=== PATIENT | female | born 1935 | race Caucasian/White ===

== ENCOUNTER 2022-05-01 13:47 | Emergency (ER) | payer MEDICARE, SELFPAY ==
--- NOTE | ~2022-05-01 | XR_ITS ---
EXAMINATION: XR FOOT, RIGHT CLINICAL INFORMATION: Right foot pain and swelling. COMPARISON: None TECHNIQUE: AP, lateral, and oblique views of the right foot. FINDINGS: Healed 5th metatarsal fracture. No acute fracture or dislocation. First metatarsophalangeal hallux valgus angulation with lateral subluxation of hallux sesamoids and mild osteoarthritis. No concerning lytic or blastic osseous lesion. No abnormal soft tissue calcification. XR/XR foot RT min 3V IMPRESSION: 1. No acute fracture or dislocation. 2. First metatarsophalangeal hallux valgus angulation with lateral subluxation of hallux sesamoids and mild osteoarthritis.
--- NOTE | ~2022-05-01 | US_ITS ---
EXAMINATION: US VENOUS ULTRASOUND WITH DOPPLER LOWER EXTREMITY, RIGHT CLINICAL INFORMATION: Right lower extremity pain and swelling. Rule out DVT, abscess, tendon COMPARISON: None TECHNIQUE: Ultrasound of the deep veins is performed from the hip to the calf with compression sonography and color and pulse Doppler assessment. Spectral analysis with color-flow imaging is performed. FINDINGS: There is normal venous compression and respiratory variation and augmented flow. The visualized common femoral vein, superficial femoral vein, profunda femoral vein, popliteal vein, and the trifurcation region shows no evidence of deep venous thrombosis. There is no significant popliteal fossa cyst. There is amorphous nonspecific fluid posterior to the calcaneus. If the patient's symptoms persist, followup ultrasound in 5 days 7 days might be of value to exclude proximal propagation from a non-visualized calf vein. US/US venous duplex LE RT IMPRESSION: No DVT demonstrated in the right lower extremity. Nonspecific fluid posterior to the calcaneus. Consider MRI for further evaluation as clinically indicated.
--- NOTE | ~2022-05-01 | CT_ITS ---
EXAMINATION: CT HEAD WITHOUT CONTRAST CLINICAL INFORMATION: Increased confusion. COMPARISON: None TECHNIQUE: Contiguous axial imaging was performed from the skull base to vertex without intravenous administration of contrast. This CT examination was performed using dose optimization techniques as appropriate, variously including the following: *Automated exposure control *Adjustment of mA and/or kV according to patient size (this includes techniques or standardized protocols for targeted exams where dose is matched to indication/reason for exam; i.e. extremities or head) *Use of iterative reconstruction technique DLP: 120 mGy-cm FINDINGS: The ventricles and sulci are enlarged consistent with patient's age. No visualized masses or midline shift are seen. There is no intra-axial or extra-axial hemorrhage. There are no fluid collections. Decreased attenuation is seen in the periventricular white matter compatible with chronic small vessel ischemic disease. The thakur-white discrimination is preserved. The included paranasal sinuses and mastoid air cells are well aerated. The calvarium is intact. CT/CT head/brain wo con IMPRESSION: No intracranial hemorrhage or mass effect. Generalized age-related atrophy and chronic small vessel white matter ischemic changes.
[2022-05-01 14:10] VITALS: BP 130/70; PULSE 83; O2SAT 96
--- NOTE | 2022-05-01 14:20 | ED_ITS ---
HPI - Extremity Problem General Chief complaint: Wound/Laceration Stated complaint: R FOOT PAIN/SWELLING/REDNESS X'S 3 DAYS,NO INJURY Time Seen by Provider: 05/01/22 14:11 Source: patient, EMS and RN notes reviewed Mode of arrival: EMS Limitations: no limitations History of Present Illness HPI Narrative: This is a 86-year-old female who presents via EMS, with complaints of right foot pain swelling and itchy rash the last 3 days. Patient is poor historian. Patient reports that 3 days ago she woke up and noticed that her right foot was painful and swollen and also noted an itchy rash all over her bilateral feet. She also reports that she noticed that she has had a itchy rash on her right flank while she was sitting here. She denies any new soaps, lotions, detergents or foods. She denies any new medications. She denies any fevers or chills. She states that she lives at home with her son, reports that no one else in her home has similar rashes. Per EMS, patient's home is infested with fleas and is the home is currently being treated for this. Patient does own a cat per EMS, however patient denies this. She states that she is active and does not lay in her bed for prolonged periods time. No other complaints or concerns at this time. MD Complaint: extremity pain Onset (ago): day(s) Pain Consistency: constant Location: right Severity scale (1-10): 6 Quality: aching Radiation: none Relieving factors: nothing Exacerbating factors: nothing Associated symptoms: denies other symptoms Related Data Allergies Allergy/AdvReac Type Severity Reaction Status Date / Time No Known Allergies Allergy Verified 05/01/22 14:45 Review of Systems Review of Systems: Constitutional : No Weight loss, No Fever, No Chills, No Night Sweats, No Fatigue, No Malaise ENT/Mouth : No Hearing loss, No Ear Pain, No Nasal Congestion, No Sinus Pain, No Hoarseness, No sore throat, No Rhinorrhea, No Swallowing Difficulty Eyes: No Eye Pain, No Swelling, No Redness, No Foreign Body, No Discharge, No Vision Changes Cardiovascular : No Chest Pain, No SOB, No Dyspnea on Exertion, No Orthopnea, No Edema, No Palpitations Respiratory : No Cough, No Sputum, No Wheezing, No Smoke Exposure, No Dyspnea Gastrointestinal : No Nausea, No Vomiting, No Diarrhea, No Constipation, No abdominal Pain, No Hematochezia, No Melena Genitourinary : no irregular bleeding, No Dysuria, No Urinary Frequency, No Hematuria, No Urinary Incontinence, No Urgency, No Flank Pain, No Urinary Flow Changes, No Hesitancy Musculoskeletal : +Right achilles and right ankle pain. No Myalgias, No Joint Swelling Skin : +Rash to BL lower extremities and right flank. Neuro : No Weakness, No Numbness, No Paresthesias, No Loss of Consciousness, No Dizziness, No Headache Psych : No Anxiety/Panic, No Depression, No SI/HI/AH/VH, No Social Issues, Heme/Lymph: No Bruising, No Bleeding,No Lymphadenopathy Endocrine : No Polyuria, No Polydipsia, No Temperature Intolerance Yes all other systems are reviewed and are negative FOR[facility]LY [facility], [facility] Past Medical History Attestation statement: The following information was validated with the patient. Source: old records reviewed, obtained from family and nursing notes reviewed Social History Social History Advance Directives: No Advance Directives Information Provided: Yes Physical Exam Vital Signs: Vital Signs: Last Vital Signs Pulse 79 05/01/22 16:33 Resp 16 05/01/22 16:33 BP 144/82 H 05/01/22 16:33 Pulse Ox 98 05/01/22 16:33 O2 Del Method 05/01/22 16:33 BMI result Body Mass Index 20.3 Vital signs have been reviewed as normal and appeared to be correct. Blood pressure 144/82. Heart rate normal. Respiration rate normal. Temperature normal. Oxygen saturation normal. Appearance: Alert. Oriented X3. No acute distress. Actively scratching at her right flank. Head: Normal external exam. Normocephalic. Atraumatic. Eyes: PERRLA. EOMI. Conjunctiva and sclera normal. Eyelids normal. ENT: Pharynx normal. Uvula midline. Moist mucous membranes. No lesions/ulcerations or masses noted on the tongue. Normal voice. No trismus noted. No drooling noted. No muffled voice noted. Neck: Normal inspection. Neck supple. FROM. No adenopathy. CVS: Normal heart rate and rhythm. Heart sound normal. Pulses normal throughout. No murmurs/rales/gallops. Respiratory: No respiratory distress. Painless inspiration. Breath sounds normal. No wheezes/rales/rhonchi noted. Chest nontender. No crepitus is noted. No signs of trauma noted. No accessory muscle usage noted or decreased air movement noted. No signs of trauma. Abdomen: Soft and nontender. Bowel sounds normal in all 4 quadrants. No distention noted. No organomegaly noted. No visible injury noted. Back: No CVA tenderness. Full range of motion noted. Nontender. No signs of trauma. Patient neuro intact bilaterally and distally on all 4 extremities. Patient's reflexes intact bilaterally and distally on all 4 extremities. No rashes/lesion/induration/fluctuance or signs of infection noted. Skin: Right flank with scattered macular-papular rash on a nonerythematous base, with excoriations. No surrounding erythema. Skin warm and dry. Normal skin color. Normal skin turgor. No rashes/lesions/lacerations noted. Extremities: Right foot is edematous and warm with no erythema with scattered, multiple macular papular rash noted to the bilateral ankles and plantar aspect of bilateral feet, sparring the dorsums of the feet. There is a 2 x 2 circular area of erythema and edema overlying the Achilles tendon, no fluctuance. Able to plantar and dorsiflex. Negative Hedrick's test. No calf tenderness is noted. Extremities exhibit normal range of motion and nontender. Neuro: Oriented X 3. No motor deficit. ? Vascular: + radial pulses/+ 2 distal pedal pulses/+2 dorsalis pedis b/l. Normal cap refill. No cyanosis noted to upper extremity nails and lower extremity toes nails. Course Course Course Narrative: 1430 This is a 86-year-old female who presents via EMS, with complaints of right foot pain swelling and itchy rash the last 3 days. Patient is a poor historian, however per EMS, patient's house was recently treated for fleas. Patient's rash consistent with insect bites. Plan: US venous and nonvascular of right lower extremity ordered. Patient medi cated for hydroxyzine 25mg PO. Reevaluation(s) Reevaluation #1: Ultrasound of the right lower extremity reveals nonspecific fluid posterior to the calcaneus. ?Calcaneal bursitis vs underlying cellulitis secondary to flea bites, will treat with doxycycline 100mg BID. Time: 16:59 Reevaluation #2: - I called the patient's son Jarocho and he reports that his mother has a history of dementia and he reports that he believes her dementia/confusion is worsening. He reports that she is normally just sitting on the couch not moving around much. He reports that he believes that she may need physical therapy/short-term rehab - therefore at this time will obtain labs, chest x-ray, right foot x-ray, EKG, CT scan of brain without contrast place a physical therapy and case management consult re-evaluate. Time: 17:11 Reevaluation #3: Sign out to IZABELLA Bucio at this time pending labs, CT scan of brain, EKG, right foot x-ray and chest x-ray Time: 17:48 MDM - Extremity (Nontraumatic) Medical Records Attestation: I reviewed the patient's medical records. Lab Data Attestation: I reviewed the patient's lab results. Result diagrams: 05/01/22 17:29 05/01/22 17:29 Labs: Lab Results 05/01/22 05/01/22 Range/Units 17:29 17:29 WBC 9.3 (4.8-10.8) X10*3/uL RBC 4.75 (4.20-5.50) X10*6/uL Hgb 14.3 (12.0-16.0) g/dl Hct 42.7 (37.0-47.0) % MCV 89.9 (80.0-98.0) fL MCH 30.1 (27.0-33.0) pg MCHC 33.5 (31.0-35.0) g/dl RDW 13.6 (11.0-16.0) % Plt Count 189 (160-400) X10*3/uL MPV 9.3 L (9.4-12.3) fL Immature Gran % (Auto) 0.2 (0.0-0.4) % Neut % (Auto) 52.6 (45-73) % Lymph % (Auto) 30.2 (20-40) % Sharp % (Auto) 15.9 H (2-11) % Eos % (Auto) 0.9 (0-4) % Baso % (Auto) 0.2 (0-2) % Lymph # (Auto) 2.8 (1.2-4.9) X10*3/uL Sharp # (Auto) 1.5 H (0.1-1.2) X10*3/uL Eos # (Auto) 0.1 (0.0-0.4) X10*3/uL Baso # (Auto) 0.0 (0.0-0.2) X10*3/uL Abs Immat Gran (auto) 0.02 (0.00-0.03) X10*3/uL Absolute Neuts (auto) 4.9 (2.0-8.3) x10*3/uL Absolute Nucleated RBC 0.000 (0.0-0.012) X10*3/uL Nucleated RBC % (auto) 0.0 (0.0-0.2) /100WBC PT 10.7 (10.0-13.1) SEC INR 0.9 (0.9-1.1) Imaging Data US - right lower extremity: Attestation: I personally reviewed and interpreted this imaging study as follows: Radiologist's impression: EXAMINATION:? US VENOUS ULTRASOUND WITH DOPPLER LOWER EXTREMITY, RIGHT CLINICAL INFORMATION:? Right lower extremity pain and swelling. Rule out DVT, abscess, tendon COMPARISON:? None TECHNIQUE: Ultrasound of the deep veins is performed from the hip to the calf with compression sonography and color and pulse Doppler assessment. Spectral analysis with color-flow imaging is performed. FINDINGS: There is normal venous compression and respiratory variation and augmented flow. The visualized common femoral vein, superficial femoral vein, profunda femoral vein, popliteal vein, and the trifurcation region shows no evidence of deep venous thrombosis. ? There is no significant popliteal fossa cyst. There is amorphous nonspecific fluid posterior to the calcaneus. If the patient's symptoms persist, followup ultrasound in 5 days 7 days might be of value to exclude proximal propagation from a non-visualized calf vein. US/US venous duplex LE RT IMPRESSION: No DVT demonstrated in the right lower extremity. ? Nonspecific fluid posterior to the calcaneus. Consider MRI for further evaluation as clinically indicated. Dictated By: Hu James MD Critical Care Time Critical Care Time Critical Care Time: Yes Total Critical Care Time: 60 Attestation: I personally attest to this time spent taking care of the patient Discharge Plan Discharge Clinical Impression: Confusion, Flea bite of multiple sites, Calcaneal bursitis, right, Cellulitis of foot, right Patient Disposition: Still a Patient
[2022-05-01] MEDS: hydrOXYzine HCL 25 MG TABLET PO (15:03)
[2022-05-01 16:33] VITALS: BP 144/82; PULSE 79; RESP 16; O2SAT 98
[2022-05-01 17:08] VITALS: BMI 20.3
--- NOTE | 2022-05-01 17:09 | ECG_ITS ---
Test Reason : INCREASED CONFUSION Blood Pressure : / mmHG Vent. Rate : 079 BPM Atrial Rate : 079 BPM P-R Int : 162 ms QRS Dur : 074 ms QT Int : 376 ms P-R-T Axes : 062 -24 073 degrees QTc Int : 431 ms Normal sinus rhythm Possible Left atrial enlargement Septal infarct , age undetermined Abnormal ECG No previous ECGs available Referred By: Mary Blanc Electronically Signed By:Dominick Euceda
[2022-05-01 17:33] LABS: MANUAL DIFF FLAG NO
[2022-05-01 17:35] LABS: Basophils Percent Auto 0.2 % (0-2); Eosinophils Absolute Auto 0.1 X10*3/uL (0.0-0.4); Eosinophils Percent Auto 0.9 % (0-4); Hematocrit 42.7 % (37.0-47.0); Hemoglobin 14.3 g/dl (12.0-16.0); Imm Gran Abs Auto 0.02 X10*3/uL (0.00-0.03); Imm Gran Pct Auto 0.2 % (0.0-0.4); Lymphocytes Absolute Auto 2.8 X10*3/uL (1.2-4.9); Lymphocytes Percent Auto 30.2 % (20-40); Mean Corpuscular HGB Conc 33.5 g/dl (31.0-35.0); Mean Corpuscular Hemoglobin 30.1 pg (27.0-33.0); Mean Corpuscular Volume 89.9 fL (80.0-98.0); Mean Platelet Volume 9.3 fL (9.4-12.3); Monocytes Absolute Auto 1.5 X10*3/uL (0.1-1.2); Monocytes Percent Auto 15.9 % (2-11); Neutrophils Absolute Auto 4.9 x10*3/uL (2.0-8.3); Neutrophils Percent Auto 52.6 % (45-73); Platelet Count 189 X10*3/uL (160-400); Red Blood Count 4.75 X10*6/uL (4.20-5.50); Red Cell Distribution Width 13.6 % (11.0-16.0); White Blood Count 9.3 X10*3/uL (4.8-10.8)
[2022-05-01 17:41] LABS: INTERNATIONAL NORM RATIO 0.9 (0.9-1.1); Prothrombin Time 10.7 SEC (10.0-13.1)
--- NOTE | 2022-05-01 17:49 | PHA.MEDREC ---
Pharmacy Consult ? Medication Reconciliation Pharmacy has completed the medication reconciliation. Spoke to pt's son Jarocho, he states pt is on donepezil, melatonin, pravastatin, and senna
[2022-05-01 17:51] LABS: Alanine Aminotransferase 14 U/L (0-31); Albumin Level 4.1 g/dL (3.5-5.0); Alkaline Phosphatase 82 U/L (39-117); Anion Gap 12 (12-20); Aspartate Amino Transferase 20 U/L (5-31); Bilirubin Total 0.9 mg/dL (0.0-1.0); Blood Urea Nitrogen 18 mg/dL (9-16); Calcium 9.8 mg/dL (8.4-10.2); Carbon Dioxide 25 mmol/L (22-29); Chloride 108 mmol/L (96-108); Creatinine Clr Calc Pharmacy 29.8; Estimated Glomerular Filt Rate 49; Glucose Random 78 mg/dL (60-115); Magnesium 2.1 mg/dL (1.6-2.6); Potassium 4.2 mmol/L (3.3-5.1); Sodium 141 mmol/L (135-145); Total Protein 6.7 g/dL (6.5-8.0)
[2022-05-01 17:56] LABS: B Type Natriuretic Peptide 120 pg/mL (<100)
[2022-05-01 18:04] LABS: COVID-19 Test Negative (Negative); IDNOW Serial# 9DB6401D
[2022-05-01 18:25] VITALS: TEMP 36.8
[2022-05-01 19:08] LABS: Appearance Urine CLOUDY; Color Urine YELLOW; Glucose Urine UA NEG (NEG); Leukocyte Esterase Urine 3+ (NEG); Nitrite Urine POS (NEG); PH 5.5 (5.0-8.0); UACC Culture Trigger YES; Urine Blood 1+ (NEG); Urine Ketones NEG (NEG); Urine Protein NEG (NEG-TRACE)
[2022-05-01 19:14] LABS: Squamous Epithelial Cell Urine TRACE /LPF; WBC Urine 50-75 /HPF (0-4)
[2022-05-01 19:15] LABS: Bacteria Urine 3+ /LPF
--- NOTE | 2022-05-01 21:10 | MHC.CM.ED ---
CM met with patient.A&Ox2. Does not know why she is in the hospital. Explained that she has flea bites and a cellulitis R foot. Pt states she does not have a cat, so she cannot have fleas in the home. Pt thinks she had Covid vaccinations but is not sure. She thinks her PCP is Dr. Samaniego, but she is not sure. She said her HCP is her son, but is unsure if she has a copy. Pt agreeable to CM calling her son. HCP/son Jarocho Contreras. Pt lives with him. They do have a cat. She has had 2 Covid vaccinations and a booster, but he is unsure what fruit packer. Her PCP is Dr. Jose Samaniego. She uses the [facility] in [place]. Jarocho feels his mother's dementia is worsening and today she was crawling on the floor, stating her foot hurt her too much to bear weight. Jarocho feels his mother needs PT and STR. He would like local referrals, but does not want a referral to [facility]. Jarocho tells CM that the home was flea bombed and all linens were washed and changed. HCP reviewed, completed and signed. Copies given and uploaded into [facility] [employer] and [facility] [employer]. Local referrals made. Contact info given to son. Awaiting PT consult in the morning. Referrals placed. Pt has [facility]. Son aware that he will be called with bed offers and then [facility] must authorize payment before his mother can go to rehab, pending PT recommendations. CM to follow for d/c needs.
[2022-05-01] MEDS: 0.9 % Sodium Chloride 1,000 ML 999 ML IVCONT (21:18)
[2022-05-01] MEDS: cefTRIAXone sodium 1 GM in 0.9 % Sodium Chloride 50 ML IV (21:19)
[2022-05-01 21:36] VITALS: BP 109/56; PULSE 64; RESP 15; O2SAT 96
[2022-05-02 02:06] VITALS: BP 112/55; PULSE 71; RESP 16; O2SAT 96
[2022-05-02 05:27] VITALS: RESP 16
[2022-05-02 07:40] VITALS: BP 112/55; PULSE 71; O2SAT 96
[2022-05-02 09:53] VITALS: BP 141/71; PULSE 67; RESP 16; O2SAT 97
[2022-05-02] MEDS: Pravastatin Sodium 40 MG TABLET PO (09:53)
--- NOTE | 2022-05-02 10:52 | MHC.CM.ED ---
Patient remains in ER. Patient passed physical therapy eval. Insurance will not authorize short term rehab. Spoke with patient's son Jarocho, via telephone at [phone]. This information was provided to Jarocho. Jarocho verbalizes understanding. Patient will be transported home via BLS. Action booked. [facility] with chart. Patient and Mary LEMONS aware. Continue to monitor for d/c needs.
== END 2022-05-02 13:00 | disposition home or self-care (01) ==
PROVIDERS: Physician Assistant Medical; Emergency Provider Emergency Medicine
DX: L03.115 Cellulitis of right lower limb (principal); M79.671 Pain in right foot; M77.51 Other enthesopathy of right foot and ankle; R06.02 Shortness of breath; R51.9 Headache, unspecified; R60.0 Localized edema; R41.0 Disorientation, unspecified; Z20.822 Contact with and (suspected) exposure to COVID-19; Z79.899 Other long term (current) drug therapy
CPT/HCPCS: 70450; 73630; 80053; 81001; 83735; 83880; 84484; 85025; 85610; 87040; 87086; 87088; 87186; 87635; 93005; 93971; 97161; 99285; J0696

== ENCOUNTER 2022-06-23 20:45 | Emergency (ER) | payer OTHER, SELFPAY ==
[2022-06-23 20:54] VITALS: BP 179/108; PULSE 80; O2SAT 98
[2022-06-23 20:58] VITALS: BP 158/92; PULSE 80; RESP 18; TEMP 36.6; O2SAT 99; BMI 19.7
--- NOTE | 2022-06-23 21:48 | ED.SKABFB ---
HPI - Skin/Abscess/Foreign Bdy General Chief complaint: Skin/Abscess/Foreign Body Stated complaint: itching, hives Time Seen by Provider: 06/23/22 21:48 Source: patient Mode of arrival: ambulatory Limitations: no limitations History of Present Illness HPI narrative: Patient complain of itching with hives for last 1 week no lip swelling no tongue swelling no shortness of breath no known allergens male came to ER patient was very anxious Related Data Home Medications Medication Instructions Recorded Confirmed donepezil 5 mg tablet 1 tab PO BEDTIME 05/01/22 05/01/22 melatonin 3 mg tablet 1 tab PO BEDTIME 05/01/22 05/01/22 pravastatin 40 mg tablet 1 tab PO DAILY 05/01/22 05/01/22 sennosides 8.6 mg tablet (senna) 2 tab PO BEDTIME 05/01/22 05/01/22 Previous Rx's Medication Instructions Recorded cefuroxime axetil 500 mg tablet 500 mg PO BID uti 7 days #14 tabs 05/02/22 doxycycline hyclate 100 mg tablet 100 mg PO BID 7 days #14 tabs 05/02/22 hydroxyzine HCl 10 mg tablet 10 mg PO Q6-8H PRN itching #14 tabs 06/24/22 Allergies Allergy/AdvReac Type Severity Reaction Status Date / Time No Known Allergies Allergy Verified 06/23/22 20:57 Review of Systems Review of Systems: Yes all other systems are reviewed and are negative [facility] Social History Social History Patient Tobacco Use Status: Never used Tobacco Advance Directives: No Advance Directives Information Provided: No Physical Exam Vital Signs: Vital Signs: Last Vital Signs Temp 97.8 F 06/23/22 20:58 Pulse 88 06/23/22 23:41 Resp 18 06/23/22 23:41 BP 154/87 H 06/23/22 23:41 Pulse Ox 99 06/23/22 23:41 O2 Del Method 06/23/22 23:41 BMI result Body Mass Index 19.7 Appearance: Alert. Oriented X3. No acute distress. Anxious Eyes: PERRLA, No Nystagmus ENT: Pharynx normal. Oral Mucosa moist no lip or tongue swelling Neck: Normal inspection. Neck supple. CVS: Normal heart rate and rhythm. Pulses normal. Respiratory: No respiratory distress. Equal air entry bilateral, no wheezing/rales/rhonchi Abdomen: Soft and nontender. Bowel sounds are present, Skin: Skin warm and dry. Normal skin color. Normal skin turgor. No skin rash noted Extremities: No lower extremity edema. No calf tenderness Neuro: Oriented X 3. No motor deficit. Discharge Plan Discharge Clinical Impression: Allergic reaction Patient Disposition: Home, Self-Care Instructions: General Allergic Reaction (ED) Additional Instructions: Take medication every 6 hours as prescribed Report to the ER if worsening of rash, lips or tongue swelling, shortness of breath Prescriptions: New hydroxyzine HCl 10 mg tablet 10 mg PO Q6-8H PRN (Reason: itching) Qty: 14 0RF No Action sennosides [senna] 8.6 mg tablet 2 tab PO BEDTIME donepezil 5 mg tablet 1 tab PO BEDTIME pravastatin 40 mg tablet 1 tab PO DAILY melatonin 3 mg tablet 1 tab PO BEDTIME cefuroxime axetil 500 mg tablet 500 mg PO BID 7 Days Qty: 14 0RF doxycycline hyclate 100 mg tablet 100 mg PO BID 7 Days Qty: 14 0RF
[2022-06-23 23:41] VITALS: BP 154/87; PULSE 88; RESP 18; O2SAT 99
[2022-06-24] MEDS: hydrOXYzine HCL 10 MG TABLET PO (00:13)
--- NOTE | 2022-06-24 00:14 | PC.NURSE ---
pt up and out of bed, noted to stand next to the bed. pt alert, pleasantly confused, continues to endorse diffuse body itching and inquiring about rash to body. RN can visualize small red nonraised areas to the pt's upper chest and back (back > chest) and was medicated per MAR for itching. pt provided with lars crackers and milk per her request.
--- NOTE | 2022-06-24 04:09 | PC.NURSE ---
RN to bedside with MD Desai for re-evaluation. Pt continues to report diffuse body itching and continues to ask am I going to be helped? . RN continues to reinforce previous medicine man and made pt aware of plan for additional medications to be provided to assist with itching and discomfort.
[2022-06-24] MEDS: predniSONE 20 MG TABLET 40 MG PO (04:55)
[2022-06-24] MEDS: diphenhydrAMINE HCL 25 MG TABLET PO (04:55)
[2022-06-24 07:53] VITALS: BP 172/89; PULSE 81; RESP 16; TEMP 36.4; O2SAT 98
--- NOTE | 2022-06-24 08:23 | PC.NURSE ---
pt ate 50% of breakfast. pt d/c'd home with son.
== END 2022-06-24 08:24 | disposition home or self-care (01) ==
PROVIDERS: Emergency Provider Internal Medicine
DX: L50.0 Allergic urticaria (principal); Z79.899 Other long term (current) drug therapy
CPT/HCPCS: 99283; Q0163

== ENCOUNTER 2022-06-27 17:37 | Emergency (ER) | payer OTHER, SELFPAY ==
[2022-06-27 17:59] VITALS: BP 150/87; PULSE 84; RESP 18; TEMP 36.3; O2SAT 97; BMI 19.6
--- NOTE | 2022-06-27 20:51 | ED.GENADULT ---
HPI - General Adult General Chief complaint: General Medical Stated complaint: allergic reaction to medicine Time Seen by Provider: 06/27/22 20:49 Source: patient Mode of arrival: ambulatory Limitations: no limitations History of Present Illness HPI narrative: 86-year-old female return to the emergency department for evaluation of itching. Itching all over her body started 10 days ago, patient was evaluated in the emergency department and was sent home hydroxyzine, patient returned today for no relief of her symptoms. Patient declined any facial swelling, no SOB, no CP. No change in patient's lifestyle no new detergent, no new medication. Related Data Home Medications Medication Instructions Recorded Confirmed donepezil 5 mg tablet 1 tab PO BEDTIME 05/01/22 05/01/22 melatonin 3 mg tablet 1 tab PO BEDTIME 05/01/22 05/01/22 pravastatin 40 mg tablet 1 tab PO DAILY 05/01/22 05/01/22 sennosides 8.6 mg tablet (senna) 2 tab PO BEDTIME 05/01/22 05/01/22 Previous Rx's Medication Instructions Recorded cefuroxime axetil 500 mg tablet 500 mg PO BID uti 7 days #14 tabs 05/02/22 doxycycline hyclate 100 mg tablet 100 mg PO BID 7 days #14 tabs 05/02/22 hydroxyzine HCl 10 mg tablet 10 mg PO Q6-8H PRN itching #14 tabs 06/24/22 diphenhydramine HCl 25 mg tablet 25 mg PO Q6-8H PRN itching #20 tabs 06/27/22 (Benadryl Allergy) prednisone 20 mg tablet 20 mg PO DAILY #5 tabs 06/27/22 Allergies Allergy/AdvReac Type Severity Reaction Status Date / Time No Known Allergies Allergy Verified 06/23/22 20:57 Review of Systems Review of Systems: All other systems are reviewed and are negative Constitutional: Reports as per HPI and Reports no additional constitutional complaints Eyes: Reports as per HPI and Reports no additional eye complaints Reports system reviewed and no additional complaints, except as documented Cardiovascular: Reports as per HPI and Reports no additional cardiovascular complaints Respiratory: Reports as per HPI and Reports no additional respiratory complaints Gastrointestinal: Reports as per HPI and Reports no additional gastrointestinal complaints Genitourinary: Reports no additional female genitourinary complaints Musculoskeletal: Reports no additional musculoskeletal complaints Skin/Breast: Reports system reviewed and no additional complaints, except as docu Psychiatric: Reports no additional psychiatric complaints Endocrine: Reports no additional endocrine complaints Hematologic/Lymphatic: Reports no additional hematologic/lymphatic complaints Allergic/Immunologic: Reports no additional allergic/immunologic complaints Reports system reviewed and no additional complaints, except as documented and Reports Abnormal speech present [facility] Social History Social History Patient Tobacco Use Status: Never used Tobacco Advance Directives: Yes Advance Directives on File: Yes Advance Directives Date on File: 05/01/22 Physical Exam ED Vital Signs: Vital Signs - 24 hr 06/27/22 17:59 Temperature 97.4 F Pulse Rate 84 Respiratory Rate 18 Blood Pressure 150/87 H Pulse Oximetry 97 Oxygen Delivery Method Room Air BMI result Body Mass Index 19.6 Vital signs have been reviewed as appeared to be correct. Blood pressure normal. Heart rate normal. Respiration rate normal. Temperature normal. Oxygen saturation normal. Appearance: Alert. Oriented X3. No acute distress. Head: Normal external exam. Normocephalic. Atraumatic. No Winn signs noted. No raccoon eyes noted Eyes: PERRLA. EOMI. Conjunctiva and sclera normal. Eyelids normal. ENT: TM's Normal. Pharynx normal. Uvula midline. Moist mucous membranes. No trismus noted. No drooling noted. No muffled voice noted. Neck: Normal inspection. Neck supple. FROM. No adenopathy. Thyroid Normal. No meningeal signs. No neck mass noted. CVS: Normal heart rate and rhythm. Heart sound normal. No murmurs noted. Pulses normal throughout. Respiratory: No respiratory distress. Painless inspiration. Breath sounds normal. No wheezes/rales/rhonchi noted. Chest nontender. No accessory muscle usage noted or decreased air movement noted. Abdomen: Soft and nontender. Bowel sounds normal in all 4 quadrants. No distention noted. No organomegaly noted. No visible injury noted. Back: No CVA tenderness. Full range of motion noted. Skin: Skin warm and dry. Normal skin color. Normal skin turgor. No apparent rashes/lesions/lacerations noted. No hives Extremities: No lower extremity edema. Extremities exhibit normal range of motion. Extremities nontender. Neuro: Oriented X 3. Cranial nerve exam: II-XII are grossly intact No motor deficit. No sensory deficit. Reflexes normal. Course Course Course Narrative: 86-year-old female came in for itching was seen in the emergency department for same symptoms patient was prescribed hydroxyzine with no relief of patient's symptoms. Will prescribe Benadryl and prednisone for few days to help patient's symptoms. Discharge Plan Discharge Clinical Impression: Itching Patient Disposition: Home, Self-Care Instructions: Itchy Skin (ED) Prescriptions: New prednisone 20 mg tablet 20 mg PO DAILY Qty: 5 0RF diphenhydramine HCl [Benadryl Allergy] 25 mg tablet 25 mg PO Q6-8H PRN (Reason: itching) Qty: 20 0RF No Action hydroxyzine HCl 10 mg tablet 10 mg PO Q6-8H PRN (Reason: itching) Qty: 14 0RF sennosides [senna] 8.6 mg tablet 2 tab PO BEDTIME donepezil 5 mg tablet 1 tab PO BEDTIME pravastatin 40 mg tablet 1 tab PO DAILY melatonin 3 mg tablet 1 tab PO BEDTIME cefuroxime axetil 500 mg tablet 500 mg PO BID 7 Days Qty: 14 0RF doxycycline hyclate 100 mg tablet 100 mg PO BID 7 Days Qty: 14 0RF Referrals: Physician,Unknown J [Primary Care Provider] -
[2022-06-27] MEDS: diphenhydrAMINE HCL 25 MG TABLET PO (21:26)
[2022-06-27] MEDS: predniSONE 10 MG TABLET 30 MG PO (21:26)
== END 2022-06-27 22:31 | disposition home or self-care (01) ==
PROVIDERS: Emergency Provider Emergency Medicine
DX: L29.9 Pruritus, unspecified (principal); Z79.899 Other long term (current) drug therapy
CPT/HCPCS: 99282; 99283; Q0163